=== PATIENT | male | born 1950 | race Caucasian/White ===

== ENCOUNTER 2021-11-15 07:27 | Observation (INO) ==
[2021-11-15] MEDS ORDERED: Ondansetron 4 mg VIAL 2 MG/ML 2 ml VIAL IV ONE (07:51)
[2021-11-15] MEDS ORDERED: Famotidine IV 10 MG/ML 2 ml VIAL (20 mg) IV SLOW PU ONE (07:51)
[2021-11-15] MEDS ORDERED: Lactated Ringers 1000 ml BAG 1,000 ML IV ONE (07:51)
[2021-11-15 08:19] LABS: ABS Lymphocytes 1.1 10^3/ul (1.0-4.8); ABS Monocytes 0.6 10^3/ul (0-0.8); ABS Neutrophils 10.7 10^3/ul (1.5-7.7); Eosinophil % 0.2 %; Hematocrit 42 % (42-52); Hemoglobin 14.6 g/dL (14.0-18.0); Lymphocyte % 8.7 %; Mean Corpuscular HGB Conc 35 g/dL (31-36); Mean Corpuscular Hemoglobin 32 pg (27-31); Mean Corpuscular Volume 91 fL (80-94); Mean Platelet Volume 8.7 fL (7.4-10.4); Platelet Count 225 10^3/uL (150-450); Red Blood Count 4.65 10^6 /uL (4.18-5.48); Red Cell Distribution Width 13 % (10-15); White Blood Count 12.4 10^3/uL (3.5-10.8)
[2021-11-15 08:32] LABS: Ammonia 33 mcmol/L (16-53)
[2021-11-15 08:36] LABS: Activated Partial Thrombo Time 27.4 seconds (26.0-38.0); INR 1.09 (0.86-1.15)
[2021-11-15 08:43] LABS: High Sens Troponin Baseline < 3 pg/mL (<20)
[2021-11-15 08:49] LABS: BNP 58 pg/mL (<=100)
[2021-11-15 08:57] LABS: ALT 18 U/L (7-52); AST 17 U/L (13-39); Albumin 3.9 g/dL (3.2-5.2); Albumin/Globulin Ratio 1.5 (1-3); Alkaline Phosphatase 113 U/L (35-149); Anion Gap 9 mmol/L (2-11); Blood Urea Nitrogen 13 mg/dL (6-24); CO2 Carbon Dioxide 24 mmol/L (22-32); Calcium 8.9 mg/dL (8.6-10.3); Chloride 104 mmol/L (101-111); Globulin 2.6 g/dL (2-4); Glucose 142 mg/dL (70-100); Lipase 70 U/L (11.0-82.0); Magnesium 1.9 mg/dL (1.9-2.7); Potassium 3.7 mmol/L (3.5-5.0); Sodium 137 mmol/L (135-145); Total Protein 6.5 g/dL (6.4-8.9)
[2021-11-15 09:12] LABS: TSH Ultra Thyroid Stim Horm 0.85 mcIU/mL (0.34-5.60)
[2021-11-15 09:14] LABS: Free T4 1.08 ng/dL (0.61-1.12)
[2021-11-15 09:37] LABS: High Sensitivity Troponin 1 Hr < 3 pg/mL (<20)
[2021-11-15] MEDS ORDERED: Iohexol 350 (CONTRAST) 500 ML MDV IV ONE (09:42)
[2021-11-15 10:54] LABS: Urine Appearance Clear; Urine Bacteria Absent (Absent); Urine Bilirubin Negative (Negative); Urine Blood Negative (Negative); Urine Color Yellow; Urine Glucose Negative (Negative); Urine Ketones Negative (Negative); Urine Nitrite Negative (Negative); Urine Protein Negative (Negative); Urine Red Blood Cell Trace(0-2/hpf) (Absent); Urine Specific Gravity 1.009 (1.002-1.030); Urine Urobilinogen Negative (Negative); Urine White Blood Cell Trace(0-5/hpf) (Absent)
[2021-11-15 18:08] LABS: Vitamin B12 575 pg/mL (180-914)
[2021-11-16 05:01] LABS: ABS Basophils 0.1 10^3/ul (0-0.2); ABS Eosinophils 0.1 10^3/ul (0-0.6); ABS Lymphocytes 2.4 10^3/ul (1.0-4.8); ABS Monocytes 1.4 10^3/ul (0-0.8); Eosinophil % 0.8 %; Hematocrit 43 % (42-52); Hemoglobin 14.8 g/dL (14.0-18.0); Lymphocyte % 21.7 %; Mean Corpuscular HGB Conc 35 g/dL (31-36); Mean Corpuscular Hemoglobin 32 pg (27-31); Mean Corpuscular Volume 91 fL (80-94); Mean Platelet Volume 8.4 fL (7.4-10.4); Platelet Count 211 10^3/uL (150-450); Red Blood Count 4.66 10^6 /uL (4.18-5.48); Red Cell Distribution Width 13 % (10-15); White Blood Count 10.9 10^3/uL (3.5-10.8)
[2021-11-16 05:40] LABS: Calcium 8.8 mg/dL (8.6-10.3); HDL Cholesterol 35.4 mg/dL; Potassium 4.1 mmol/L (3.5-5.0); eGFR CKD-EPI 95.5 (>60)
[2021-11-16 16:42] VITALS: BP 136/73
== END 2021-11-16 15:45 | disposition home or self-care (01) ==
LOC: ED 07:27 → EDHOLD 07:27 → MEDTELE 20:06
PROVIDERS: ADMIT Internal Medicine; ATTEND Internal Medicine